=== PATIENT | male | born 1940 | race Caucasian/White ===

== ENCOUNTER → 2017-07-21 | Outpatient (CLI) | payer OTHER | LOC: FIMAGING 11:27 | PROVIDERS: ATTEND Internal Medicine | DX: M16.0 Bilateral primary osteoarthritis of hip (principal) ==

== ENCOUNTER → 2017-07-23 | Outpatient (CLI) | payer OTHER | LOC: FIMAGING 14:25 | PROVIDERS: ATTEND Internal Medicine | DX: M48.061 Spinal stenosis, lumbar region without neurogenic claudication (principal); M43.17 Spondylolisthesis, lumbosacral region; M51.17 Intervertebral disc disorders with radiculopathy, lumbosacral region; M51.16 Intervertebral disc disorders with radiculopathy, lumbar region ==

== ENCOUNTER 2018-02-17 17:08 | Observation (INO) | payer OTHER ==
[2018-02-17] MEDS ORDERED: ONDANSETRON DISINTEGRATING 4 MG TAB PO PRN (19:06)
[2018-02-17] MEDS ORDERED: ONDANSETRON 4 MG/2 ML VIAL IVP PRN (19:06)
[2018-02-17] MEDS ORDERED: NS W/ 20 KCl/L 1,000 ML IV SCH (19:15)
[2018-02-17 19:37] LABS: PLATELET COUNT 154 10^3/uL (150-400)
[2018-02-17] MEDS ORDERED: AMPICILLIN 500 MG SDV IV SCH (19:45)
[2018-02-17] MEDS ORDERED: AZITHROMYCIN 250 MG TAB PO ONE (20:11)
[2018-02-17] MEDS ORDERED: PIPERACILLIN/TAZO 3.375 GM/DEX 50 ML IV SCH (21:00)
[2018-02-17] MEDS ORDERED: OSELTAMIVIR 6 MG/ML UDSYR PO SCH (21:00)
--- NOTE | 2018-02-17 21:07 | GHP ---
[f rep st] HISTORY AND PHYSICAL DATE OF ADMISSION: 02/17/2018 ADMITTING DIAGNOSIS: Influenza B, fever, tachycardia. HISTORY OF PRESENT ILLNESS: Christopher is a 78-year-old male who was seen in the office today with a 2-day history of body aches and chills. His symptoms progressively worsened over the day on Friday (yesterday), and he noted an associated fever up to 101 degrees Fahrenheit. He had dry and nonproductive cough, sore throat, shortness of breath, nausea, fatigue, and bilateral ear congestion. 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 In the office he tested positive for influenza B, and will be admitted overnight for IV fluids and monitoring of his symptoms and status, with the hope that he will be able to discharge in the next day or 2. We will also rule out pneumonia or other causes of his fever. PAST MEDICAL HISTORY: Includes splenic laceration with proximal splenic artery embolization in March of 2017. Elevated coronary artery calcium score of 1422.72 , with a -7% annualized plaque progression in December 2017, status post nephrectomy, hyperlipidemia, hypertension, arthritis, and insomnia. PAST SURGICAL HISTORY: Includes nephrectomy by Dr. Vegas in 2008, tonsillectomy , appendectomy, hernia repair x2. FAMILY MEDICAL HISTORY: Includes father at age 82 with hypertension and leukemia. Mother at 75 with lung cancer and hypertension. Siblings: Sister with lung cancer at age 70; brother with skin cancer at age 75 , hypertension, diagnosed with prostate cancer. SOCIAL HISTORY: Former smoker who quit greater than 10 years ago. He drinks up to 6 cups of coffee per day. Exercises 2-3 times per week. Works full-time. REVIEW OF SYSTEMS: GENERAL: Denies headache. Complains of fevers, chills, fatigue. HEENT: Denies sinus pressure or pain. Complaining of sore throat and bilateral ear congestion. RESPIRATORY: Denies wheezing. Complaining of shortness of breath and dry unproductive cough. CARDIOVASCULAR: Denies chest pain, palpitations, dizziness, lightheadedness. GASTROINTESTINAL: Denies abdominal pain, vomiting, or acute bowel changes. Does complain of nausea. : Denies urinary burning, frequency, or foul odor to urine. MUSCULOSKELETAL: Denies acute joint stiffness, muscle aches, or swollen joints. SKIN: Denies itching, rash, hives. NEUROLOGIC: Denies fainting, confusion, or loss of strength. PSYCHIATRIC: Denies acute problematic mood changes. PHYSICAL EXAMINATION: GENERAL: Alert and oriented x3, in no acute distress. HEAD: Normocephalic, atraumatic. EYES: EOMI. Pupils equal, round, reactive. SKIN: Warm, dry, without breakdown. HEART: S1, S2. Slightly tachycardic, rhythm in the 120s. LUNGS: Clear to auscultation bilaterally. No wheezing, rhonchi, or rales. ABDOMEN: Soft, nontender, nondistended. EXTREMITIES: No acute edema. NEUROLOGIC: Alert and oriented. Cognitive exam grossly normal. PSYCHIATRIC: Mood and affect in full range. ASSESSMENT AND PLAN: 1. Influenza B. We will start Tamiflu, given that symptom onset was approximately 48 hours ago. Will also administer slow IV fluids for hydration. Monitor patient overnight with symptomatic care. 2. Fever, temperature of 101.5 degrees Fahrenheit during office visit. P.r.n. Tylenol for fevers. We will check blood cultures, urine, chest x-ray, and labs this evening to rule out other causes of fever, possible infection. 3. Status post splenic laceration, proximal splenic artery embolization in 2017 - as noted above, checking blood cx, cxr, UA, kahlil given immunocompromised status. 4. Elevated coronary artery calcium score, currently stable with -7% annualized plaque progression as demonstrated by an EBT heart scan in December 2017 , without CP or ACS sx. 5. Status post nephrectomy. Will evaluate renal function on metabolic panel, abx and tamiflu dose adjustments per pharmacy. 6. Hyperlipidemia. Monitored outpatient. DISPOSITION: Will admit as observation overnight, with further workup pending to rule out additional causes of fever and fatigue, and then will plan to discharge home. /[id number]/MODL MTDD
[2018-02-17] MEDS: traZODone 50 MG TAB PO PRN (21:29)
[2018-02-17] MEDS: ACETAMINOPHEN 325 MG TAB PO PRN (21:29)
[2018-02-17] MEDS: OSELTAMIVIR PO SCH (22:23)
[2018-02-18] MEDS ORDERED: PIPERACILLIN/TAZO 4.5 GM/DEX 100 ML IV SCH
[2018-02-18] MEDS: PIPERACILLIN SODIUM/TAZOBACTAM 3.375 GM in D5W 50 ML IV SCH ×4 (03:45→20:21)
[2018-02-18] MEDS ORDERED: OSELTAMIVIR PHOSPHATE 75 MG CAP PO SCH (08:00)
[2018-02-18] MEDS: DILTIAZEM CD 180 MG CAP PO SCH (08:36)
[2018-02-18] MEDS: ASPIRIN 325 MG TAB PO SCH (08:36)
[2018-02-18] MEDS: OMEGA-3 FATTY ACIDS 1,000 MG CAP PO SCH (08:37)
[2018-02-18] MEDS: LOSARTAN POTASSIUM 50 MG TAB PO SCH (08:37)
[2018-02-18] MEDS: AZITHROMYCIN 250 MG TAB PO SCH (08:38)
[2018-02-18] MEDS: OSELTAMIVIR PO SCH ×2 (08:38→17:55)
--- NOTE | 2018-02-18 08:51 | SOAPPROG ---
SOAP Progress Note Assessment/Plan: Assessment: Influenza B. Evidence of additional bacterial infection is liiited to the elevated WBC at this time. Plan: Will recheck the WBC this afternoon. if he remains afebrile and WBC is improved, will consider sending home tonight providing he also continues to feel better. 02/18/18 08:49 Subjective: Feeliing some better. No further fever. Cough is looser. Objective: Vital Signs Temp Pulse Resp BP Pulse Ox 98.8 F 85 18 141/70 H 92 02/18/18 07:33 02/18/18 07:33 02/18/18 07:33 02/18/18 07:33 02/18/18 07:33 Laboratory Results 02/17/18 19:15 02/17/18 19:15 02/17/18 02/18/18 02/19/18 05:59 05:59 05:59 Intake Total 400 Output Total 550 Balance -150 Lungs without wheezing or rales. COR RRR. abd non-tender. no peripheral edema. CXR negative for pneumonia. Cultures are pending. ICD10 Worksheet Patient Problems: Problems Problem Status Onset Fever Acute Tachycardia Acute
[2018-02-18] MEDS: CHOLECALCIFEROL VIT D3 1,000 UNITS TAB PO SCH (09:41)
--- NOTE | 2018-02-18 10:24 | ASMTCASEMG ---
Living Arrangements What is your living Answers: Alone arrangement? Who do you live with? Type Of Residence What kind of residence do Answers: House you live in? Discharge Plan Comments Coordination Status Comments Notes: CM spoke w/ EDWINA Mata regarding d/c POC. Pt is a 78 y/o man admitted for fever and tachycardia. Pt will most likely d/c independent when medically stable. No therapies ordered at this time. CM available for changes. Plan: Independent Date Signed: 02/18/2018 10:23 AM Electronically Signed By:DAGOBERTO Almaguer
[2018-02-18 14:26] LABS: PLATELET COUNT 136 10^3/uL (150-400)
[2018-02-18] MEDS: ACETAMINOPHEN 325 MG TAB PO PRN (20:21)
[2018-02-18] MEDS: traZODone 50 MG TAB PO PRN (22:54)
[2018-02-19] MEDS: PIPERACILLIN SODIUM/TAZOBACTAM 3.375 GM in D5W 50 ML IV SCH (04:46)
[2018-02-19 05:41] LABS: PLATELET COUNT 142 10^3/uL (150-400)
[2018-02-19 07:26] VITALS: BP 146/73
--- NOTE | 2018-02-19 08:57 | SOAPPROG ---
SOAP Progress Note Assessment/Plan: Assessment: Plan: 02/19/18 08:56 Flu B+, will d/c home. He is mch better! Rx's for zithromax, tamiflu 75 mg BID and ondansetron to on . Subjective: Bill states he is feeling better. Cough dry. Aches less, energy improved. c/ o nausea and loose stool Objective: Vital Signs Temp Pulse Resp BP Pulse Ox 37.2 C 76 16 146/73 H 90 L 02/19/18 07:26 02/19/18 07:26 02/19/18 07:26 02/19/18 07:26 02/19/18 07:26 Laboratory Results 02/19/18 05:02 02/19/18 05:02 02/18/18 02/19/18 02/20/18 05:59 05:59 05:59 Intake Total 400 1620 Output Total 550 1090 Balance -150 530 Gen: NAD Lungs: Dry cough Heart: RRR Abd + bs soft ICD10 Worksheet Patient Problems: Problems Problem Status Onset Fever Acute Tachycardia Acute
[2018-02-19] MEDS ORDERED: PIPERACILLIN/TAZO 3.375 GM/DEX 50 ML IV SCH (09:00)
[2018-02-19] MEDS: DILTIAZEM CD 180 MG CAP PO SCH (09:32)
[2018-02-19] MEDS: AZITHROMYCIN 250 MG TAB PO SCH (09:33)
[2018-02-19] MEDS: ASPIRIN 325 MG TAB PO SCH (09:33)
[2018-02-19] MEDS: OMEGA-3 FATTY ACIDS 1,000 MG CAP PO SCH (09:33)
[2018-02-19] MEDS: CHOLECALCIFEROL VIT D3 1,000 UNITS TAB PO SCH (09:34)
[2018-02-19] MEDS: LOSARTAN POTASSIUM 50 MG TAB PO SCH (09:34)
[2018-02-19] MEDS: OSELTAMIVIR PO SCH (09:47)
--- NOTE | 2018-02-19 09:50 | GDS ---
[f rep st] DISCHARGE SUMMARY REASON FOR ADMISSION: Symptomatic flu B. HOSPITAL COURSE: The patient had approximately 48 hours of symptomatology before coming to the [facility]. His nasal flu swab was positive for flu B. Given his moderately high fever and immunocompromised status, he was admitted. He was started on Zithromax plus Zosyn as well as Tamiflu. He has made go od improvement. White count was initially 22,000. It dropped to 18,000 yesterday, 13,000 today. Hi s energy is improving. Cough is less. Aches and chills are less. He feels improved enough to disch arge to home. His medicines, including Zithromax, Tamiflu, and ondansetron will be called to [facility] on the . He will have office followup in the next couple of days. He will call if he has a downturn in his overall sense of well-being. /[id number]/MODL
== END 2018-02-19 10:49 | disposition home or self-care (01) ==
LOC: INTOOBSV 18:45 → OBSVTOIN 18:45 → F3E 18:45
PROVIDERS: ADMIT Internal Medicine; ATTEND Internal Medicine
DX: J10.1 Influenza due to other identified influenza virus with other respiratory manifestations (principal); R50.9 Fever, unspecified; R00.0 Tachycardia, unspecified; D84.9 Immunodeficiency, unspecified; R93.1 Abnormal findings on diagnostic imaging of heart and coronary circulation; E78.5 Hyperlipidemia, unspecified; G47.00 Insomnia, unspecified; Z87.891 Personal history of nicotine dependence; Z87.828 Personal history of other (healed) physical injury and trauma; Z90.5 Acquired absence of kidney
CPT/HCPCS: 71046; G0378; J2543

== ENCOUNTER → 2019-03-11 | Outpatient (CLI) | payer OTHER | LOC: BMCIMAGING 15:13 ==